=== PATIENT | female | born 1965 | race Caucasian/White ===

== ENCOUNTER 2023-04-29 19:20 | Emergency (ER) | payer MEDICAID ==
[~2023-04-29] VITALS: Ht 157.5 cm; Wt 68.5 kg
[2023-04-29 19:24] VITALS: BP_SYST 140; PULSE 82; RESP 16; TEMP 97.5; O2SAT 100
[2023-04-29] MEDS ORDERED: KETOROLAC TROMETHAMINE 60 MG/2 ML VIAL IM ONE (20:30)
[2023-04-29 20:40] LABS: BILIRUBIN,URINE NEGATIVE (NEGATIVE); BLOOD, URINE TRACE (NEGATIVE); CLARITY/URINE CLEAR (CLEAR); COLOR,URINE YELLOW (YELLOW); GLUCOSE,URINE NEGATIVE (NEGATIVE); KETONES,URINE NEGATIVE (NEGATIVE); LEUKOCYTE ESTERASE ,URINE TRACE (NEGATIVE); NITRITE, URINE NEGATIVE (NEGATIVE); PH,URINE 7.5 (5.0-8.0); PROTEIN URINE NEGATIVE (NEGATIVE); UROBILINOGEN,URINE 0.2 (0.2-1.0)
[2023-04-29 21:18] LABS: BACTERIA,URINE FEW /HPF (None Seen)
[2023-04-29] MEDS ORDERED: MORPHINE 4 MG INJ. 4 MG/ML VIAL IM ONE (22:00)
[2023-04-29] MEDS ORDERED: CIPR500T5 PO (22:00)
[2023-04-29] MEDS ORDERED: OMEP40CA20 PO (22:00)
[2023-04-29] MEDS ORDERED: HYDR-3927 PO (22:00)
[2023-04-29 22:06] VITALS: BP_SYST 104; PULSE 71; RESP 16; O2SAT 96
== END 2023-04-29 22:06 | disposition home or self-care (01) ==
LOC: SED 19:20
DX: N39.0 Urinary tract infection, site not specified (principal); M54.50 Low back pain, unspecified; M79.662 Pain in left lower leg; R20.2 Paresthesia of skin; Z88.5 Allergy status to narcotic agent; Z88.8 Allergy status to other drugs, medicaments and biological substances; Z85.528 Personal history of other malignant neoplasm of kidney; Z79.899 Other long term (current) drug therapy
CPT/HCPCS: 99285; 93971; 81000; 87086; 93005; 96372; J1885